=== PATIENT | female | born 1965 | race Caucasian/White ===

== ENCOUNTER 2018-07-03 10:32 | Inpatient (IN) | payer MEDICAID ==
[2018-07-03] MEDS: CEFAZOLIN 1 GM/50 ML (PMX) 50 ML IVPB (07:00)
[~2018-07-03 10:32] MED LIST: CEFAZOLIN 2 GM/50 ML (PMX) 50 ML IVPB; ROCURONIUM 50 MG INJ; SEVOFLURANE 15 MIN
[2018-07-03 12:05] LABS: ADD MAN DIFF? NO
[2018-07-03 12:09] LABS: BASOPHILS % 0.5 % (0.0-2.0); EOSINOPHILS # 0.2 10^3/ul (0.0-0.5); EOSINOPHILS % 2.3 % (0.0-7.0); HEMATOCRIT 37.5 % (37.0-47.0); HEMOGLOBIN 12.4 g/dl (12.0-16.0); LYMPHOCYTES % 30.4 % (15.0-51.0); MEAN CORPUSCULAR HEMOGLOBIN 28.7 pg (29.0-33.0); MEAN CORPUSCULAR HGB CONC 33.1 g/dl (32.0-37.0); MEAN CORPUSCULAR VOLUME 86.8 fl (82.0-101.0); MEAN PLATELET VOLUME 9.6 fl (7.4-10.4); MONOCYTE # 0.5 10^3/ul (0.3-0.9); MONOCYTES % 7.1 % (0.0-11.0); NEUTROPHIL # 3.9 10^3/ul (1.6-7.5); NEUTROPHILS % 59.5 % (39.0-77.0); PLATELET COUNT 323 10^3/UL (140-415); RED BLOOD COUNT 4.32 10^6/ul (4.20-5.40); RED CELL DISTRIBUTION WIDTH 12.7 % (11.5-14.5)
[2018-07-03 12:09] LABS: WHITE BLOOD COUNT 6.5 10^3/ul (4.8-10.8)
[2018-07-03 12:25] LABS: ALANINE AMINOTRANSFERASE 38 IU/L (13-69); ALBUMIN 4.1 g/dl (3.3-4.9); ALBUMIN/GLOBULIN RATIO 1.07; ALKALINE PHOSPHATASE 90 IU/L (42-121); ANION GAP 9 (5-13); ASPARTATE AMINO TRANSFERASE 33 IU/L (15-46); BILIRUBIN,INDIRECT 0.5 mg/dl (0-1.1); BILIRUBIN,TOTAL 0.5 mg/dl (0.2-1.3); BLOOD UREA NITROGEN 11 mg/dl (7-20); CALCIUM 9.6 mg/dl (8.4-10.2); CARBON DIOXIDE 25 mmol/L (21-31); CHLORIDE 107 mmol/L (97-110); CREATININE 0.44 mg/dl (0.44-1.00); Estimated GFR > 60 mL/min (>60); GLUCOSE 94 mg/dl (70-220); POTASSIUM 3.7 mmol/L (3.5-5.1); SODIUM 141 mmol/L (135-144); TOTAL PROTEIN 7.9 g/dl (6.1-8.1)
[2018-07-03 12:26] LABS: INR 0.92; PROTIME 12.5 Sec (11.9-14.9)
[2018-07-03 12:28] LABS: PARTIAL THROMBOPLASTIN TIME 28.9 Sec (23.0-35.0)
[2018-07-03] MEDS ORDERED: MIDAZOLAM 1 MG/ML 2 ML INJ (12:37)
[2018-07-03] MEDS ORDERED: PROPOFOL 20 ML (12:37)
[2018-07-03] MEDS ORDERED: CEFAZOLIN 1 GM INJ (12:37)
[2018-07-03] MEDS ORDERED: FENTAnyl 50 MCG/ML VIAL (12:37)
[2018-07-03] MEDS ORDERED: ROCURONIUM 50 MG INJ (12:37)
[2018-07-03] MEDS ORDERED: OXYCODONE/ACETAMINOPHEN (5/325) TAB PO ×2 (13:00)
[2018-07-03] MEDS ORDERED: LABETALOL HCL 20MG INJ IV (13:00)
[2018-07-03] MEDS ORDERED: FENTAnyl 50 MCG/ML VIAL IV ×3 (13:00)
[2018-07-03] MEDS ORDERED: METOCLOPRAMIDE 10 MG INJ IV (13:00)
[2018-07-03] MEDS ORDERED: hydrALAzine 20 MG INJ IV (13:00)
[2018-07-03] MEDS ORDERED: HYDROmorphONE 1 MG/5 ML IV SYRINGE IV (13:00)
[2018-07-03] MEDS ORDERED: DIPHENHYDRAMINE 50 MG INJ IV (13:00)
[2018-07-03] MEDS ORDERED: EPHEDrine SULFATE 50 MG/5 ML SYG IV (13:00)
[2018-07-03] MEDS ORDERED: GLYCOPYRROLATE 0.4 MG INJ (13:52)
[2018-07-03] MEDS ORDERED: METOCLOPRAMIDE 10 MG INJ (13:52)
[2018-07-03] MEDS ORDERED: NEOSTIGMINE 3 MG/3 ML SYRINGE (13:52)
[2018-07-03] MEDS ORDERED: ONDANSETRON 4 MG INJ (13:52)
[2018-07-03] MEDS ORDERED: DEXAMETHASONE 4 MG/ML 5 ML INJ (13:52)
[2018-07-03] MEDS ORDERED: morphine 2 MG INJ IV (14:00)
[2018-07-03] MEDS ORDERED: ONDANSETRON 4 MG INJ IV (14:00)
[2018-07-03] MEDS: HYDROmorphONE 1 MG/5 ML IV SYRINGE IV ×2 (14:27→15:12)
[2018-07-03] MEDS: ONDANSETRON 4 MG INJ IV (14:27)
[2018-07-03] MEDS: MEPERIDINE 25 MG INJ IV (14:38)
[2018-07-03] MEDS: D5W-0.45 NACL + KCL 20 MEQ 1,000 ML IV ×2 (16:45→23:36)
[2018-07-03] MEDS: SOD CHLORIDE 0.9% 1,000 ML IV (19:13)
[2018-07-03] MEDS: HYDROCODONE/APAP (5/325) TAB PO (19:42)
[2018-07-03] MEDS: ACETAMINOPHEN 1000MG/100ML IV 100 ML IVPB (23:44)
[2018-07-04] MEDS: D5W-0.45 NACL + KCL 20 MEQ 1,000 ML IV (05:46)
[2018-07-04] MEDS: ACETAMINOPHEN 1000MG/100ML IV 100 ML IVPB (07:49)
[2018-07-04] MEDS: ACETAMINOPHEN 325 MG TAB PO (14:55)
== END 2018-07-04 16:14 | disposition home or self-care (01) | DRG 582 ==
LOC: SDS 10:32 → REC 13:47 → MS1 15:39
PROC: 0HTU0ZZ Resection of Left Breast, Open Approach (ICD-10-PCS; principal; 2018-07-03 12:29)
PROC: 07T60ZZ Resection of Left Axillary Lymphatic, Open Approach (ICD-10-PCS; 2018-07-03 12:29)
DX: C50.912 Malignant neoplasm of unspecified site of left female breast (principal); C77.3 Secondary and unspecified malignant neoplasm of axilla and upper limb lymph nodes
CPT/HCPCS: 71045; 80053; 84703; 85025; 85610; 85730; 88307; 93005

== ENCOUNTER 2018-08-13 07:24 | Day surgery (SDC) | payer MEDICAID ==
[2018-08-13] MEDS: LACTATED RINGER'S 1,000 ML IV (08:30)
[2018-08-13] MEDS: FENTAnyl 50 MCG/ML VIAL (10:40)
[2018-08-13] MEDS: HEPARIN 1000 UNITS/ML 10 ML INJ (10:40)
[2018-08-13] MEDS: LIDOCAINE 1%/EPI (1:100,000) (MDV) 20 ML (10:40)
[2018-08-13] MEDS: MIDAZOLAM 1 MG/ML 2 ML INJ (10:40)
[2018-08-13] MEDS: POLYMYXIN/BACITRACIN 1L IRRIG IRR (10:55)
[2018-08-13] MEDS ORDERED: HYDROCODONE/APAP (5/325) TAB PO (12:00)
== END 2018-08-13 14:07 | disposition home or self-care (01) ==
LOC: SDS 07:24
DX: C50.912 Malignant neoplasm of unspecified site of left female breast (principal); E78.5 Hyperlipidemia, unspecified
CPT/HCPCS: 36561; 76942; 93306

== ENCOUNTER 2019-01-02 19:37 | Emergency (ER) | payer MEDICAID ==
[2019-01-02] MEDS: morphine 4 MG/ML VIAL IV (21:30)
[2019-01-02 21:41] LABS: HEMATOCRIT 29.9 % (37.0-47.0); HEMOGLOBIN 9.9 g/dl (12.0-16.0); MEAN CORPUSCULAR HEMOGLOBIN 30.3 pg (29.0-33.0); MEAN CORPUSCULAR HGB CONC 33.1 g/dl (32.0-37.0); MEAN CORPUSCULAR VOLUME 91.4 fl (82.0-101.0); MEAN PLATELET VOLUME 9.2 fl (7.4-10.4); PLATELET COUNT 212 10^3/UL (140-415); RED BLOOD COUNT 3.27 10^6/ul (4.20-5.40); RED CELL DISTRIBUTION WIDTH 15.6 % (11.5-14.5)
[2019-01-02 21:41] LABS: WHITE BLOOD COUNT 2.5 10^3/ul (4.8-10.8)
[2019-01-02 21:51] LABS: ADD MAN DIFF? YES; POSITIVE DIFF @See below
[2019-01-02 22:03] LABS: ALANINE AMINOTRANSFERASE 32 IU/L (13-69); ALBUMIN/GLOBULIN RATIO 1.25; ALKALINE PHOSPHATASE 66 IU/L (42-121); ANION GAP 10 (5-13); ASPARTATE AMINO TRANSFERASE 31 IU/L (15-46); BILIRUBIN,INDIRECT 1.1 mg/dl (0-1.1); BILIRUBIN,TOTAL 1.1 mg/dl (0.2-1.3); BLOOD UREA NITROGEN 6 mg/dl (7-20); CALCIUM 9.5 mg/dl (8.4-10.2); CARBON DIOXIDE 23 mmol/L (21-31); CHLORIDE 105 mmol/L (97-110); CREATININE 0.39 mg/dl (0.44-1.00); Estimated GFR > 60 mL/min (>60); GLUCOSE 103 mg/dl (70-220); POTASSIUM 3.9 mmol/L (3.5-5.1); SODIUM 138 mmol/L (135-144); TOTAL PROTEIN 7.2 g/dl (6.1-8.1)
[2019-01-02 22:14] LABS: TROPONIN-I 0.024 ng/ml (0.000-0.120)
[2019-01-02] MEDS: HYDROCODONE/APAP (5/325) TAB PO (22:36)
[2019-01-02 23:00] LABS: GIANT THROMBO% (M) 2 % (0-0); HYPOCHROMASIA 1+ (0-0); LYMPHOCYTES #M 0.5 10^3/ul (0.8-2.9); LYMPHOCYTES % (M) 22 % (15-51); MONOCYTES % (M) 1 % (0-11); PLATELET ESTIMATE NORMAL; SEGMENTED NEUTROPHILS (M) % 77 % (39-77); SMUDGE%M 2 % (0-0)
== END 2019-01-02 22:37 | disposition home or self-care (01) ==
LOC: E/R 19:37
DX: G62.0 Drug-induced polyneuropathy (principal); D70.1 Agranulocytosis secondary to cancer chemotherapy; T45.1X5A Adverse effect of antineoplastic and immunosuppressive drugs, initial encounter; C50.912 Malignant neoplasm of unspecified site of left female breast
CPT/HCPCS: 36415; 71045; 80053; 84484; 85025; 93005; 96374; 99285-25

== ENCOUNTER 2019-01-05 15:41 | Inpatient (IN) | payer MEDICAID ==
[2019-01-05 16:44] LABS: WHITE BLOOD COUNT 0.6 10^3/ul (4.8-10.8)
[2019-01-05 16:44] LABS: ABNORMAL IP MESSAGE 1; HEMATOCRIT 30.9 % (37.0-47.0); HEMOGLOBIN 10.4 g/dl (12.0-16.0); MEAN CORPUSCULAR HEMOGLOBIN 30.4 pg (29.0-33.0); MEAN CORPUSCULAR HGB CONC 33.7 g/dl (32.0-37.0); MEAN CORPUSCULAR VOLUME 90.4 fl (82.0-101.0); MEAN PLATELET VOLUME 9.4 fl (7.4-10.4); PLATELET COUNT 242 10^3/UL (140-415); RED BLOOD COUNT 3.42 10^6/ul (4.20-5.40); RED CELL DISTRIBUTION WIDTH 14.9 % (11.5-14.5)
[2019-01-05 16:47] LABS: POSITIVE DIFF @See below
[2019-01-05 16:48] LABS: ADD MAN DIFF? YES
[2019-01-05 17:00] LABS: ANION GAP 12 (5-13); BLOOD UREA NITROGEN 8 mg/dl (7-20); CALCIUM 10.3 mg/dl (8.4-10.2); CARBON DIOXIDE 28 mmol/L (21-31); CHLORIDE 98 mmol/L (97-110); CREATININE 0.44 mg/dl (0.44-1.00); Estimated GFR > 60 mL/min (>60); GLUCOSE 119 mg/dl (70-220); POTASSIUM 3.4 mmol/L (3.5-5.1); SODIUM 138 mmol/L (135-144)
[2019-01-05] MEDS: ONDANSETRON 4 MG INJ IV ×2 (17:10→23:01)
[2019-01-05] MEDS: morphine 4 MG/ML VIAL IV (17:11)
[2019-01-05 17:26] LABS: BAND NEUTROPHILS % (M) 7 % (0-4); BASOPHILS % (M) 2 % (0-2); GIANT THROMBO% (M) 3 % (0-0); LYMPHOCYTES #M 0.4 10^3/ul (0.8-2.9); LYMPHOCYTES % (M) 74 % (15-51); METAMYELOCYTES %M 1 % (0-0); MONOCYTES % (M) 2 % (0-11); PLATELET ESTIMATE NORMAL; POLYCHROMASIA 1+ (0-0); SEG NEUT #M 0.1 10^3/ul (1.6-7.5); SEGMENTED NEUTROPHILS (M) % 14 % (39-77); SMUDGE%M 7 % (0-0)
[2019-01-05] MEDS ORDERED: ONDANSETRON 4 MG INJ IV (18:00)
[2019-01-05] MEDS ORDERED: ACETAMINOPHEN 325 MG TAB PO (18:00)
[2019-01-05] MEDS ORDERED: HYDROCODONE/APAP (5/325) TAB PO (21:00)
[2019-01-05] MEDS: GABAPENTIN 100 MG CAP PO (23:01)
[2019-01-05] MEDS: morphine 2 MG INJ IV (23:43)
[2019-01-06] MEDS: morphine 2 MG INJ IV ×2 (07:48→22:37)
[2019-01-06] MEDS: GABAPENTIN 100 MG CAP PO ×3 (09:12→21:51)
[2019-01-06] MEDS: DEXAMETHASONE 4 MG/ML 1 ML INJ IV ×2 (14:50→21:52)
[2019-01-06] MEDS: FILGRASTIM-AAFI 480 MCG/0.8 ML SYRINGE SC (18:12)
[2019-01-06] MEDS ORDERED: DEXAMETHASONE 4 MG/ML 1 ML INJ IV (22:00)
[2019-01-07] MEDS: DEXAMETHASONE 4 MG/ML 1 ML INJ IV ×3 (05:18→21:03)
[2019-01-07] MEDS: ACETAMINOPHEN 325 MG TAB PO ×2 (07:44→17:40)
[2019-01-07] MEDS: GABAPENTIN 100 MG CAP PO ×3 (08:58→21:03)
[2019-01-07 11:54] LABS: ABNORMAL IP MESSAGE 1; HEMATOCRIT 30.5 % (37.0-47.0); MEAN CORPUSCULAR HEMOGLOBIN 29.9 pg (29.0-33.0); MEAN CORPUSCULAR HGB CONC 32.8 g/dl (32.0-37.0); MEAN CORPUSCULAR VOLUME 91.3 fl (82.0-101.0); MEAN PLATELET VOLUME 9.8 fl (7.4-10.4); PLATELET COUNT 265 10^3/UL (140-415); RED BLOOD COUNT 3.34 10^6/ul (4.20-5.40); RED CELL DISTRIBUTION WIDTH 15.1 % (11.5-14.5)
[2019-01-07 11:54] LABS: WHITE BLOOD COUNT 1.5 10^3/ul (4.8-10.8)
[2019-01-07 12:10] LABS: ANION GAP 11 (5-13); BLOOD UREA NITROGEN 6 mg/dl (7-20); CALCIUM 10.2 mg/dl (8.4-10.2); CARBON DIOXIDE 28 mmol/L (21-31); CHLORIDE 102 mmol/L (97-110); CREATININE 0.41 mg/dl (0.44-1.00); Estimated GFR > 60 mL/min (>60); GLUCOSE 133 mg/dl (70-220); POTASSIUM 3.7 mmol/L (3.5-5.1); SODIUM 141 mmol/L (135-144)
[2019-01-07 12:18] LABS: ADD MAN DIFF? YES; POSITIVE DIFF @See below
[2019-01-07 13:48] LABS: ANISOCYTOSIS 1+ (0-0); BAND NEUTROPHILS #M 0.3 10^3/ul (0.0-0.6); BAND NEUTROPHILS % (M) 26 % (0-4); ERYTHROBLAST% (NRBC) (M) 1 % (0-0); GIANT THROMBO% (M) 4 % (0-0); LYMPHOCYTES #M 0.4 10^3/ul (0.8-2.9); LYMPHOCYTES % (M) 29 % (15-51); METAMYELOCYTES %M 1 % (0-0); MONOCYTE #M 0.1 10^3/ul (0.3-0.9); MONOCYTES % (M) 11 % (0-11); MYELOCYTES % (M) 1 % (0-0); PLATELET ESTIMATE NORMAL; POIKILOCYTOSIS 1+ (0-0); REACTIVE LYMPHOCYTES% (M) 4 % (0-0); SEG NEUT #M 0.4 10^3/ul (1.6-7.5); SEGMENTED NEUTROPHILS (M) % 28 % (39-77); SMUDGE%M 4 % (0-0)
[2019-01-07] MEDS: FILGRASTIM-AAFI 480 MCG/0.8 ML SYRINGE SC (16:53)
[2019-01-07] MEDS: morphine 2 MG INJ IV (18:58)
[2019-01-08] MEDS: morphine 2 MG INJ IV ×4 (00:18→21:59)
[2019-01-08 05:13] LABS: ABNORMAL IP MESSAGE 1; HEMATOCRIT 29.7 % (37.0-47.0); HEMOGLOBIN 9.5 g/dl (12.0-16.0); MEAN CORPUSCULAR HEMOGLOBIN 29.9 pg (29.0-33.0); MEAN CORPUSCULAR VOLUME 93.4 fl (82.0-101.0); MEAN PLATELET VOLUME 9.3 fl (7.4-10.4); PLATELET COUNT 251 10^3/UL (140-415); RED BLOOD COUNT 3.18 10^6/ul (4.20-5.40); RED CELL DISTRIBUTION WIDTH 15.2 % (11.5-14.5)
[2019-01-08 05:13] LABS: WHITE BLOOD COUNT 3.1 10^3/ul (4.8-10.8)
[2019-01-08 05:16] LABS: ADD MAN DIFF? YES; POSITIVE DIFF @See below
[2019-01-08 05:37] LABS: ANION GAP 9 (5-13); BLOOD UREA NITROGEN 10 mg/dl (7-20); CALCIUM 10.2 mg/dl (8.4-10.2); CARBON DIOXIDE 28 mmol/L (21-31); CHLORIDE 102 mmol/L (97-110); CREATININE 0.47 mg/dl (0.44-1.00); Estimated GFR > 60 mL/min (>60); GLUCOSE 121 mg/dl (70-220); SODIUM 139 mmol/L (135-144)
[2019-01-08] MEDS: DEXAMETHASONE 4 MG/ML 1 ML INJ IV ×3 (05:41→20:57)
[2019-01-08 07:12] LABS: ANISOCYTOSIS 1+ (0-0); BAND NEUTROPHILS #M 0.6 10^3/ul (0.0-0.6); BAND NEUTROPHILS % (M) 22 % (0-4); ERYTHROBLAST% (NRBC) (M) 3 % (0-0); GIANT THROMBO% (M) 17 % (0-0); LYMPHOCYTES #M 0.8 10^3/ul (0.8-2.9); LYMPHOCYTES % (M) 27 % (15-51); MONOCYTE #M 0.5 10^3/ul (0.3-0.9); MONOCYTES % (M) 17 % (0-11); PLATELET ESTIMATE NORMAL; POIKILOCYTOSIS 1+ (0-0); SEG NEUT #M 1.1 10^3/ul (1.6-7.5); SEGMENTED NEUTROPHILS (M) % 34 % (39-77); SMUDGE%M 34 % (0-0)
[2019-01-08] MEDS: GABAPENTIN 100 MG CAP PO ×3 (08:44→20:56)
[2019-01-08] MEDS: ENOXAPARIN 30 MG/0.3 ML SYG SC (09:00)
[2019-01-08 11:27] LABS: ADD UMIC NO; UR ASCORBIC ACID NEGATIVE (NEGATIVE); UR BACTERIA FEW /HPF (NONE SEEN); UR BILIRUBIN (Dip) NEGATIVE (NEGATIVE); UR BLOOD (Dip) NEGATIVE (NEGATIVE); UR CLARITY SLIGHTLY CLOUDY (CLEAR); UR COLOR YELLOW (YELLOW); UR GLUCOSE (Dip) NEGATIVE (NEGATIVE); UR KETONES (Dip) NEGATIVE (NEGATIVE); UR LEUKOCYTE ESTERASE (Dip) NEGATIVE Leu/ul (NEGATIVE); UR NITRITE (Dip) NEGATIVE (NEGATIVE); UR RBC 1 /HPF (0-5); UR SPECIFIC GRAVITY (Dip) 1.008 (1.003-1.030); UR SQUAMOUS EPITHELIAL CELL FEW /HPF (FEW); UR TOTAL PROTEIN (Dip) NEGATIVE (NEGATIVE); UR UROBILINOGEN (Dip) NEGATIVE (NEGATIVE); UR WBC 1 /HPF (0-5)
[2019-01-08] MEDS: LIDOCAINE 1% (MPF) 5 ML VIAL (14:09)
[2019-01-08] MEDS: ONDANSETRON INJ 8 MG in SOD CHLORIDE 0.9% 50 ML IV (14:12)
[2019-01-08] MEDS: SOD CHLORIDE 0.9% IT (15:00)
[2019-01-08] MEDS: METHOTREXATE IT (15:00)
[2019-01-08] MEDS: FILGRASTIM 480 MCG INJ SC (17:10)
[2019-01-09] MEDS: ACETAMINOPHEN 325 MG TAB PO ×3 (02:01→21:07)
[2019-01-09] MEDS: morphine 2 MG INJ IV ×2 (02:43→18:31)
[2019-01-09] MEDS: DEXAMETHASONE 4 MG/ML 1 ML INJ IV ×3 (06:40→21:05)
[2019-01-09] MEDS: ONDANSETRON 4 MG INJ IV ×3 (08:45→18:33)
[2019-01-09] MEDS: GABAPENTIN 100 MG CAP PO ×3 (08:50→21:05)
[2019-01-09] MEDS: ENOXAPARIN 30 MG/0.3 ML SYG SC (13:06)
[2019-01-09] MEDS: FILGRASTIM-AAFI 480 MCG/0.8 ML SYRINGE SC (18:32)
[2019-01-10] MEDS: ACETAMINOPHEN 325 MG TAB PO ×2 (00:47→17:55)
[2019-01-10] MEDS: DEXAMETHASONE 4 MG/ML 1 ML INJ IV ×3 (05:30→21:57)
[2019-01-10] MEDS: morphine 2 MG INJ IV ×3 (08:07→20:32)
[2019-01-10] MEDS: GABAPENTIN 100 MG CAP PO ×3 (09:00→20:32)
[2019-01-10] MEDS: ENOXAPARIN 30 MG/0.3 ML SYG SC (09:01)
[2019-01-10] MEDS: ONDANSETRON 4 MG INJ IV ×2 (13:23→17:48)
[2019-01-10] MEDS: FILGRASTIM-AAFI 480 MCG/0.8 ML SYRINGE SC (17:50)
[2019-01-11] MEDS: DEXAMETHASONE 4 MG/ML 1 ML INJ IV ×3 (05:36→21:33)
[2019-01-11] MEDS: ENOXAPARIN 30 MG/0.3 ML SYG SC (08:39)
[2019-01-11] MEDS: GABAPENTIN 100 MG CAP PO ×3 (08:39→21:34)
[2019-01-11] MEDS: ONDANSETRON 4 MG INJ IV ×3 (08:39→18:16)
[2019-01-11] MEDS: FILGRASTIM-AAFI 480 MCG/0.8 ML SYRINGE SC (18:17)
[2019-01-11] MEDS: morphine 2 MG INJ IV (21:32)
[2019-01-12] MEDS: morphine 2 MG INJ IV ×2 (02:19→17:49)
[2019-01-12] MEDS: ONDANSETRON 4 MG INJ IV ×4 (02:19→23:00)
[2019-01-12 04:50] LABS: WHITE BLOOD COUNT 68.4 10^3/ul (4.8-10.8)
[2019-01-12 04:50] LABS: ABNORMAL IP MESSAGE 1; HEMATOCRIT 31.4 % (37.0-47.0); HEMOGLOBIN 9.8 g/dl (12.0-16.0); MEAN CORPUSCULAR HEMOGLOBIN 29.8 pg (29.0-33.0); MEAN CORPUSCULAR HGB CONC 31.2 g/dl (32.0-37.0); MEAN CORPUSCULAR VOLUME 95.4 fl (82.0-101.0); NUCLEATED RED BLOOD CELLS% 0.1 /100WBC (0.0-0.0); PLATELET COUNT 219 10^3/UL (140-415); RED BLOOD COUNT 3.29 10^6/ul (4.20-5.40); RED CELL DISTRIBUTION WIDTH 15.8 % (11.5-14.5)
[2019-01-12 04:56] LABS: ADD MAN DIFF? YES; POSITIVE DIFF @See below
[2019-01-12 05:09] LABS: ANION GAP 8 (5-13); BLOOD UREA NITROGEN 14 mg/dl (7-20); CALCIUM 9.7 mg/dl (8.4-10.2); CARBON DIOXIDE 30 mmol/L (21-31); CHLORIDE 100 mmol/L (97-110); Estimated GFR > 60 mL/min (>60); GLUCOSE 114 mg/dl (70-220); POTASSIUM 4.3 mmol/L (3.5-5.1); SODIUM 138 mmol/L (135-144)
[2019-01-12] MEDS: DEXAMETHASONE 4 MG/ML 1 ML INJ IV ×2 (05:46→21:20)
[2019-01-12 07:58] LABS: WHITE BLOOD COUNT 63.8 10^3/ul (4.8-10.8)
[2019-01-12 07:58] LABS: ABNORMAL IP MESSAGE 1; MEAN CORPUSCULAR HEMOGLOBIN 30.7 pg (29.0-33.0); MEAN CORPUSCULAR HGB CONC 32.3 g/dl (32.0-37.0); MEAN CORPUSCULAR VOLUME 95.1 fl (82.0-101.0); MEAN PLATELET VOLUME 8.9 fl (7.4-10.4); NUCLEATED RED BLOOD CELLS% 0.1 /100WBC (0.0-0.0); PLATELET COUNT 233 10^3/UL (140-415); RED BLOOD COUNT 3.26 10^6/ul (4.20-5.40); RED CELL DISTRIBUTION WIDTH 15.6 % (11.5-14.5)
[2019-01-12 08:00] LABS: ADD MAN DIFF? YES; POSITIVE DIFF @See below
[2019-01-12] MEDS: GABAPENTIN 100 MG CAP PO ×3 (08:03→21:20)
[2019-01-12] MEDS: ACETAMINOPHEN 325 MG TAB PO (08:06)
[2019-01-12 09:37] LABS: ANISOCYTOSIS 1+ (0-0); BAND NEUTROPHILS #M 7.6 10^3/ul (0.0-0.6); BAND NEUTROPHILS % (M) 12 % (0-4); METAMYELOCYTES #M 0.6 10^3/ul (0.0-0.0); METAMYELOCYTES %M 1 % (0-0); MICROCYTOSIS 1+ (0-0); MONOCYTE #M 1.2 10^3/ul (0.3-0.9); MONOCYTES % (M) 2 % (0-11); PLATELET ESTIMATE NORMAL; POIKILOCYTOSIS 1+ (0-0); POLYCHROMASIA 1+ (0-0); REACTIVE LYMPHOCYTES #M 0.6 10^3/ul (0.0-0.0); REACTIVE LYMPHOCYTES% (M) 1 % (0-0); SEG NEUT #M 58.4 10^3/ul (1.6-7.5); SEGMENTED NEUTROPHILS (M) % 84 % (39-77); TARGET CELLS 1+ (0-0); TEAR DROP CELLS 1+ (0-0); TOXIC GRANULATION 2+ (0-0)
[2019-01-12] MEDS: LIDOCAINE 1% (MPF) 5 ML VIAL (10:13)
[2019-01-12] MEDS: METHOTREXATE IT (10:30)
[2019-01-12] MEDS: SOD CHLORIDE 0.9% IT (10:30)
[2019-01-12 11:49] LABS: ANISOCYTOSIS 1+ (0-0); BAND NEUTROPHILS #M 13.6 10^3/ul (0.0-0.6); BAND NEUTROPHILS % (M) 20 % (0-4); LYMPHOCYTES #M 0.6 10^3/ul (0.8-2.9); LYMPHOCYTES % (M) 1 % (15-51); MICROCYTOSIS 1+ (0-0); MONOCYTE #M 0.6 10^3/ul (0.3-0.9); MONOCYTES % (M) 1 % (0-11); MYELOCYTES #M 0.6 10^3/ul (0.0-0.0); MYELOCYTES % (M) 1 % (0-0); PLATELET ESTIMATE NORMAL; POIKILOCYTOSIS 1+ (0-0); POLYCHROMASIA 1+ (0-0); PROMYELOCYTES #M 1.3 10^3/ul (0-0); PROMYELOCYTES % (M) 2 % (0-0); SEG NEUT #M 61.3 10^3/ul (1.6-7.5); SEGMENTED NEUTROPHILS (M) % 76 % (39-77); SMUDGE%M 2 % (0-0); TOXIC GRANULATION 2+ (0-0)
[2019-01-13] MEDS: ONDANSETRON 4 MG INJ IV ×4 (08:22→21:33)
[2019-01-13] MEDS: DEXAMETHASONE 4 MG/ML 1 ML INJ IV ×2 (08:22→21:33)
[2019-01-13] MEDS: GABAPENTIN 100 MG CAP PO ×3 (08:22→21:34)
[2019-01-13] MEDS: morphine 2 MG INJ IV (10:17)
[2019-01-14] MEDS: morphine 2 MG INJ IV ×2 (06:13→22:31)
[2019-01-14] MEDS: ONDANSETRON 4 MG INJ IV ×3 (08:43→17:58)
[2019-01-14] MEDS: DEXAMETHASONE 4 MG/ML 1 ML INJ IV ×2 (08:43→20:46)
[2019-01-14] MEDS: GABAPENTIN 100 MG CAP PO ×3 (08:44→20:46)
[2019-01-14] MEDS: ACETAMINOPHEN 325 MG TAB PO (11:57)
[2019-01-15] MEDS: morphine 2 MG INJ IV ×3 (05:38→23:05)
[2019-01-15] MEDS: DEXAMETHASONE 4 MG/ML 1 ML INJ IV ×2 (08:57→20:35)
[2019-01-15] MEDS: GABAPENTIN 100 MG CAP PO ×3 (08:57→20:35)
[2019-01-15] MEDS: METHOTREXATE IT (11:30)
[2019-01-15] MEDS: SOD CHLORIDE 0.9% IT (11:30)
[2019-01-15] MEDS: POLYETHYLENE GLYCOL 17 GM PACKET PO (20:35)
[2019-01-16 05:08] LABS: ADD MAN DIFF? NO
[2019-01-16 05:23] LABS: WHITE BLOOD COUNT 3.4 10^3/ul (4.8-10.8)
[2019-01-16 05:23] LABS: ABNORMAL IP MESSAGE 1; HEMATOCRIT 30.9 % (37.0-47.0); HEMOGLOBIN 9.9 g/dl (12.0-16.0); LYMPHOCYTES # 0.5 10^3/ul (0.8-2.9); LYMPHOCYTES % 14.3 % (15.0-51.0); MEAN CORPUSCULAR HEMOGLOBIN 30.1 pg (29.0-33.0); MEAN CORPUSCULAR VOLUME 93.9 fl (82.0-101.0); MEAN PLATELET VOLUME 9.7 fl (7.4-10.4); MONOCYTE # 0.3 10^3/ul (0.3-0.9); MONOCYTES % 8.4 % (0.0-11.0); NEUTROPHIL # 2.6 10^3/ul (1.6-7.5); PLATELET COUNT 191 10^3/UL (140-415); RED BLOOD COUNT 3.29 10^6/ul (4.20-5.40); RED CELL DISTRIBUTION WIDTH 15.5 % (11.5-14.5)
[2019-01-16 05:49] LABS: ANION GAP 6 (5-13); BLOOD UREA NITROGEN 13 mg/dl (7-20); CALCIUM 9.1 mg/dl (8.4-10.2); CARBON DIOXIDE 31 mmol/L (21-31); CHLORIDE 102 mmol/L (97-110); CREATININE 0.43 mg/dl (0.44-1.00); Estimated GFR > 60 mL/min (>60); GLUCOSE 116 mg/dl (70-220); POTASSIUM 4.3 mmol/L (3.5-5.1); SODIUM 139 mmol/L (135-144)
[2019-01-16 05:50] LABS: POSITIVE DIFF @See below
[2019-01-16] MEDS: GABAPENTIN 100 MG CAP PO ×3 (08:48→20:54)
[2019-01-16] MEDS: ONDANSETRON 4 MG INJ IV ×3 (08:48→17:58)
[2019-01-16] MEDS: DEXAMETHASONE 4 MG/ML 1 ML INJ IV ×2 (08:48→20:54)
[2019-01-16] MEDS: morphine 2 MG INJ IV (22:39)
[2019-01-17] MEDS: DEXAMETHASONE 4 MG/ML 1 ML INJ IV ×2 (09:37→21:03)
[2019-01-17] MEDS: GABAPENTIN 100 MG CAP PO ×3 (09:37→21:03)
[2019-01-17] MEDS: ONDANSETRON 4 MG INJ IV ×3 (09:41→17:51)
[2019-01-17] MEDS: morphine 2 MG INJ IV (23:09)
[2019-01-18] MEDS: DEXAMETHASONE 4 MG/ML 1 ML INJ IV ×2 (07:59→20:22)
[2019-01-18] MEDS: GABAPENTIN 100 MG CAP PO ×3 (08:00→20:22)
[2019-01-18] MEDS: ONDANSETRON 4 MG INJ IV ×3 (08:00→17:29)
[2019-01-18] MEDS: morphine 2 MG INJ IV (23:01)
[2019-01-19 05:03] LABS: ADD MAN DIFF? NO
[2019-01-19 05:08] LABS: ABNORMAL IP MESSAGE 1; HEMATOCRIT 28.3 % (37.0-47.0); HEMOGLOBIN 9.2 g/dl (12.0-16.0); LYMPHOCYTES # 0.5 10^3/ul (0.8-2.9); LYMPHOCYTES % 11.3 % (15.0-51.0); MEAN CORPUSCULAR HEMOGLOBIN 30.6 pg (29.0-33.0); MEAN CORPUSCULAR HGB CONC 32.5 g/dl (32.0-37.0); MEAN PLATELET VOLUME 9.7 fl (7.4-10.4); MONOCYTE # 0.3 10^3/ul (0.3-0.9); MONOCYTES % 6.7 % (0.0-11.0); NEUTROPHIL # 3.5 10^3/ul (1.6-7.5); NEUTROPHILS % 81.5 % (39.0-77.0); PLATELET COUNT 208 10^3/UL (140-415); RED BLOOD COUNT 3.01 10^6/ul (4.20-5.40); RED CELL DISTRIBUTION WIDTH 16.3 % (11.5-14.5)
[2019-01-19 05:08] LABS: WHITE BLOOD COUNT 4.3 10^3/ul (4.8-10.8)
[2019-01-19 05:11] LABS: POSITIVE DIFF @See below
[2019-01-19 05:30] LABS: ANION GAP 5 (5-13); BLOOD UREA NITROGEN 16 mg/dl (7-20); CARBON DIOXIDE 29 mmol/L (21-31); CHLORIDE 103 mmol/L (97-110); CREATININE 0.47 mg/dl (0.44-1.00); Estimated GFR > 60 mL/min (>60); GLUCOSE 114 mg/dl (70-220); POTASSIUM 3.8 mmol/L (3.5-5.1); SODIUM 137 mmol/L (135-144)
[2019-01-19] MEDS: DEXAMETHASONE 4 MG/ML 1 ML INJ IV ×2 (09:00→21:16)
[2019-01-19] MEDS: GABAPENTIN 100 MG CAP PO ×3 (09:00→21:16)
[2019-01-19] MEDS ORDERED: SOD CHLORIDE 0.9% IT (11:00)
[2019-01-19] MEDS ORDERED: METHOTREXATE IT (11:00)
[2019-01-19] MEDS: LIDOCAINE 1% (MPF) 5 ML VIAL (11:19)
[2019-01-20] MEDS: DEXAMETHASONE 4 MG/ML 1 ML INJ IV (08:41)
[2019-01-20] MEDS: GABAPENTIN 100 MG CAP PO ×2 (08:41→12:48)
[2019-01-20] MEDS: ONDANSETRON 4 MG INJ IV ×2 (08:41→13:10)
[2019-01-20] MEDS: ENOXAPARIN 30 MG/0.3 ML SYG SC ×2 (08:45→08:54)
== END 2019-01-20 13:40 | disposition home or self-care (01) | DRG 55 ==
LOC: MS1 01-13 17:12 → E/R 15:41 → MS1 17:55
PROC: 3E0R305 Introduction of Other Antineoplastic into Spinal Canal, Percutaneous Approach (ICD-10-PCS; 2019-01-08)
PROC: 3E0R305 Introduction of Other Antineoplastic into Spinal Canal, Percutaneous Approach (ICD-10-PCS; principal; 2019-01-12)
PROC: 3E0R305 Introduction of Other Antineoplastic into Spinal Canal, Percutaneous Approach (ICD-10-PCS; 2019-01-15)
PROC: 3E0R305 Introduction of Other Antineoplastic into Spinal Canal, Percutaneous Approach (ICD-10-PCS; 2019-01-20)
DX: C79.32 Secondary malignant neoplasm of cerebral meninges (principal); C79.51 Secondary malignant neoplasm of bone; C79.89 Secondary malignant neoplasm of other specified sites; C50.912 Malignant neoplasm of unspecified site of left female breast; C79.49 Secondary malignant neoplasm of other parts of nervous system; D70.9 Neutropenia, unspecified; E78.5 Hyperlipidemia, unspecified; Z17.0 Estrogen receptor positive status [ER+]
CPT/HCPCS: 70553; 72156; 73221; 80048; 81001; 81003; 85025; 96374; 96375; 96450; 99285-25

== ENCOUNTER 2019-03-04 08:15 | Emergency (ER) | payer MEDICAID ==
[2019-03-04] MEDS: SOD CHLORIDE 0.9% 1,000 ML IV (08:55)
[2019-03-04] MEDS: DIPHENHYDRAMINE 50 MG INJ IV (08:58)
[2019-03-04] MEDS: DEXAMETHASONE 10 MG/ML 1 ML INJ IV (08:58)
[2019-03-04] MEDS: ACETAMINOPHEN 500 MG TAB PO (08:58)
[2019-03-04] MEDS: METOCLOPRAMIDE 10 MG INJ IV (08:58)
[2019-03-04 09:00] LABS: ABNORMAL IP MESSAGE 1; HEMATOCRIT 35.5 % (37.0-47.0); HEMOGLOBIN 11.6 g/dl (12.0-16.0); MEAN CORPUSCULAR HEMOGLOBIN 30.6 pg (29.0-33.0); MEAN CORPUSCULAR HGB CONC 32.7 g/dl (32.0-37.0); MEAN CORPUSCULAR VOLUME 93.7 fl (82.0-101.0); MEAN PLATELET VOLUME 9.4 fl (7.4-10.4); PLATELET COUNT 90 10^3/UL (140-415); RED BLOOD COUNT 3.79 10^6/ul (4.20-5.40); RED CELL DISTRIBUTION WIDTH 18.1 % (11.5-14.5)
[2019-03-04 09:06] LABS: POSITIVE DIFF @See below
[2019-03-04 09:07] LABS: ADD MAN DIFF? YES
[2019-03-04 09:23] LABS: ANION GAP 5 (5-13); BLOOD UREA NITROGEN 11 mg/dl (7-20); CARBON DIOXIDE 24 mmol/L (21-31); CHLORIDE 108 mmol/L (97-110); CREATININE 0.54 mg/dl (0.44-1.00); Estimated GFR > 60 mL/min (>60); GLUCOSE 96 mg/dl (70-220); POTASSIUM 3.7 mmol/L (3.5-5.1); SODIUM 137 mmol/L (135-144)
[2019-03-04 09:51] LABS: ANISOCYTOSIS 2+ (0-0); BAND NEUTROPHILS #M 0.2 10^3/ul (0.0-0.6); BAND NEUTROPHILS % (M) 13 % (0-4); BASOPHILS % (M) 1 % (0-2); BURR CELLS 1+ (0-0); EOSINOPHILS % (M) 1 % (0-7); GIANT THROMBO% (M) 1 % (0-0); LYMPHOCYTES #M 0.8 10^3/ul (0.8-2.9); LYMPHOCYTES % (M) 43 % (15-51); MICROCYTOSIS 2+ (0-0); MONOCYTES % (M) 3 % (0-11); PLATELET ESTIMATE DECREASED; POIKILOCYTOSIS 1+ (0-0); POLYCHROMASIA 3+ (0-0); REACTIVE LYMPHOCYTES% (M) 4 % (0-0); SEG NEUT #M 0.7 10^3/ul (1.6-7.5); SEGMENTED NEUTROPHILS (M) % 35 % (39-77); SMUDGE%M 7 % (0-0)
[2019-03-04 10:56] LABS: INR 0.84; PROTIME 11.6 Sec (11.9-14.9); PT RATIO 0.9
[2019-03-04 10:57] LABS: PARTIAL THROMBOPLASTIN TIME 23.1 Sec (23.0-35.0)
== END 2019-03-04 13:00 | disposition home or self-care (01) ==
LOC: E/R 08:15
DX: C70.1 Malignant neoplasm of spinal meninges (principal); G93.6 Cerebral edema; G91.9 Hydrocephalus, unspecified; D72.819 Decreased white blood cell count, unspecified; D64.9 Anemia, unspecified; D69.6 Thrombocytopenia, unspecified; R40.2142 Coma scale, eyes open, spontaneous, at arrival to emergency department; R40.2252 Coma scale, best verbal response, oriented, at arrival to emergency department; R40.2362 Coma scale, best motor response, obeys commands, at arrival to emergency department; Z85.3 Personal history of malignant neoplasm of breast
CPT/HCPCS: 36415; 70450; 71045; 80048; 85025; 85610; 85730; 96374; 96375; 99285-25

== ENCOUNTER 2019-03-06 02:43 | Inpatient (IN) | payer MEDICAID ==
[2019-03-06 03:33] LABS: ADD MAN DIFF? NO
[2019-03-06 03:35] LABS: BASOPHILS % 0.2 % (0.0-2.0); EOSINOPHILS % 0.4 % (0.0-7.0); HEMATOCRIT 40.8 % (37.0-47.0); HEMOGLOBIN 13.2 g/dl (12.0-16.0); LYMPHOCYTES % 62.6 % (15.0-51.0); MEAN CORPUSCULAR HEMOGLOBIN 30.3 pg (29.0-33.0); MEAN CORPUSCULAR HGB CONC 32.4 g/dl (32.0-37.0); MEAN CORPUSCULAR VOLUME 93.6 fl (82.0-101.0); MEAN PLATELET VOLUME 9.7 fl (7.4-10.4); MONOCYTE # 0.2 10^3/ul (0.3-0.9); MONOCYTES % 4.4 % (0.0-11.0); NEUTROPHIL # 1.5 10^3/ul (1.6-7.5); NEUTROPHILS % 32.2 % (39.0-77.0); NUCLEATED RED BLOOD CELLS% 0.4 /100WBC (0.0-0.0); PLATELET COUNT 120 10^3/UL (140-415); RED BLOOD COUNT 4.36 10^6/ul (4.20-5.40); RED CELL DISTRIBUTION WIDTH 18.3 % (11.5-14.5)
[2019-03-06 03:35] LABS: WHITE BLOOD COUNT 4.7 10^3/ul (4.8-10.8)
[2019-03-06] MEDS: SOD CHLORIDE 0.9% 1,000 ML IV ×4 (03:40→20:43)
[2019-03-06] MEDS: METOCLOPRAMIDE 10 MG INJ IV (03:40)
[2019-03-06 03:42] LABS: ANION GAP 10 (5-13); BLOOD UREA NITROGEN 9 mg/dl (7-20); CALCIUM 9.1 mg/dl (8.4-10.2); CARBON DIOXIDE 22 mmol/L (21-31); CHLORIDE 107 mmol/L (97-110); CREATININE 0.55 mg/dl (0.44-1.00); Estimated GFR > 60 mL/min (>60); GLUCOSE 127 mg/dl (70-220); POTASSIUM 3.5 mmol/L (3.5-5.1); SODIUM 139 mmol/L (135-144)
[2019-03-06] MEDS: HYDROmorphONE 0.5 MG/0.5 ML SYG IV (05:02)
[2019-03-06] MEDS: ONDANSETRON 4 MG INJ IV ×2 (05:02→17:34)
[2019-03-06] MEDS: KETOROLAC 30 MG INJ IV (05:02)
[2019-03-06] MEDS: DEXAMETHASONE 10 MG/ML 1 ML INJ IV (05:05)
[2019-03-06] MEDS: FAMOTIDINE 20 MG INJ IV (05:05)
[2019-03-06] MEDS ORDERED: ONDANSETRON 4 MG INJ IV (05:30)
[2019-03-06] MEDS ORDERED: ACETAMINOPHEN 325 MG TAB PO (05:30)
[2019-03-06] MEDS: ENOXAPARIN 30 MG/0.3 ML SYG SC (10:28)
[2019-03-06] MEDS: DEXAMETHASONE 4 MG/ML 1 ML INJ IV ×4 (11:44→23:16)
[2019-03-06] MEDS: VERZENIO 150 MG PO (20:57)
[2019-03-06] MEDS: GABAPENTIN 100 MG CAP PO (21:04)
[2019-03-07] MEDS: DEXAMETHASONE 4 MG/ML 1 ML INJ IV ×4 (05:05→23:59)
[2019-03-07] MEDS: ONDANSETRON 4 MG INJ IV (05:05)
[2019-03-07] MEDS: SOD CHLORIDE 0.9% 1,000 ML IV ×2 (05:07→16:25)
[2019-03-07 05:47] LABS: ADD MAN DIFF? NO
[2019-03-07 05:57] LABS: WHITE BLOOD COUNT 2.5 10^3/ul (4.8-10.8)
[2019-03-07 05:57] LABS: ABNORMAL IP MESSAGE 1; HEMATOCRIT 35.6 % (37.0-47.0); HEMOGLOBIN 11.5 g/dl (12.0-16.0); LYMPHOCYTES # 0.6 10^3/ul (0.8-2.9); LYMPHOCYTES % 23.8 % (15.0-51.0); MEAN CORPUSCULAR HEMOGLOBIN 29.9 pg (29.0-33.0); MEAN CORPUSCULAR HGB CONC 32.3 g/dl (32.0-37.0); MEAN CORPUSCULAR VOLUME 92.5 fl (82.0-101.0); MEAN PLATELET VOLUME 9.5 fl (7.4-10.4); MONOCYTE # 0.2 10^3/ul (0.3-0.9); MONOCYTES % 6.9 % (0.0-11.0); NEUTROPHIL # 1.7 10^3/ul (1.6-7.5); NEUTROPHILS % 69.3 % (39.0-77.0); PLATELET COUNT 112 10^3/UL (140-415); RED BLOOD COUNT 3.85 10^6/ul (4.20-5.40); RED CELL DISTRIBUTION WIDTH 18.3 % (11.5-14.5)
[2019-03-07 06:04] LABS: POSITIVE DIFF @See below
[2019-03-07 06:19] LABS: ANION GAP 5 (5-13); BLOOD UREA NITROGEN 7 mg/dl (7-20); CALCIUM 7.6 mg/dl (8.4-10.2); CARBON DIOXIDE 23 mmol/L (21-31); CHLORIDE 109 mmol/L (97-110); CREATININE 0.34 mg/dl (0.44-1.00); Estimated GFR > 60 mL/min (>60); GLUCOSE 134 mg/dl (70-220); POTASSIUM 3.4 mmol/L (3.5-5.1); SODIUM 137 mmol/L (135-144)
[2019-03-07] MEDS: GABAPENTIN 100 MG CAP PO ×3 (08:53→21:12)
[2019-03-07] MEDS: ENOXAPARIN 30 MG/0.3 ML SYG SC (08:53)
[2019-03-07] MEDS: ABEMACICLIB 150 MG PO ×2 (08:54→21:13)
[2019-03-07] MEDS ORDERED: PATIENT'S OWN MED (CO-SIGNATURE) PO (09:00)
[2019-03-07] MEDS: morphine 2 MG INJ IV ×2 (13:13→21:08)
[2019-03-07] MEDS: FILGRASTIM-AAFI 300 MCG/0.5 ML SYRINGE SC (16:27)
[2019-03-08] MEDS: morphine 2 MG INJ IV ×6 (01:34→23:40)
[2019-03-08] MEDS: SOD CHLORIDE 0.9% 1,000 ML IV ×3 (01:36→22:21)
[2019-03-08 05:48] LABS: ABNORMAL IP MESSAGE 1; HEMATOCRIT 36.3 % (37.0-47.0); HEMOGLOBIN 11.9 g/dl (12.0-16.0); MEAN CORPUSCULAR HEMOGLOBIN 30.7 pg (29.0-33.0); MEAN CORPUSCULAR HGB CONC 32.8 g/dl (32.0-37.0); MEAN CORPUSCULAR VOLUME 93.8 fl (82.0-101.0); MEAN PLATELET VOLUME 9.2 fl (7.4-10.4); PLATELET COUNT 111 10^3/UL (140-415); RED BLOOD COUNT 3.87 10^6/ul (4.20-5.40); RED CELL DISTRIBUTION WIDTH 18.4 % (11.5-14.5)
[2019-03-08 05:48] LABS: WHITE BLOOD COUNT 7.3 10^3/ul (4.8-10.8)
[2019-03-08 06:01] LABS: POSITIVE DIFF @See below
[2019-03-08 06:02] LABS: ADD MAN DIFF? YES
[2019-03-08] MEDS: DEXAMETHASONE 4 MG/ML 1 ML INJ IV ×4 (06:03→23:29)
[2019-03-08 07:13] LABS: ANION GAP 6 (5-13); BLOOD UREA NITROGEN 8 mg/dl (7-20); CALCIUM 8.2 mg/dl (8.4-10.2); CARBON DIOXIDE 22 mmol/L (21-31); CHLORIDE 109 mmol/L (97-110); CREATININE 0.32 mg/dl (0.44-1.00); Estimated GFR > 60 mL/min (>60); GLUCOSE 119 mg/dl (70-220); POTASSIUM 3.9 mmol/L (3.5-5.1); SODIUM 137 mmol/L (135-144)
[2019-03-08 08:12] LABS: ANISOCYTOSIS 2+ (0-0); BAND NEUTROPHILS #M 1.6 10^3/ul (0.0-0.6); BAND NEUTROPHILS % (M) 23 % (0-4); LYMPHOCYTES #M 0.9 10^3/ul (0.8-2.9); LYMPHOCYTES % (M) 13 % (15-51); MICROCYTOSIS 2+ (0-0); MONOCYTE #M 0.5 10^3/ul (0.3-0.9); MONOCYTES % (M) 7 % (0-11); OVALOCYTES 1+ (0-0); PLATELET ESTIMATE DECREASED; POIKILOCYTOSIS 1+ (0-0); POLYCHROMASIA 1+ (0-0); REACTIVE LYMPHOCYTES% (M) 1 % (0-0); SEG NEUT #M 4.3 10^3/ul (1.6-7.5); SEGMENTED NEUTROPHILS (M) % 57 % (39-77); SMUDGE%M 7 % (0-0)
[2019-03-08] MEDS: GABAPENTIN 100 MG CAP PO ×3 (09:10→22:16)
[2019-03-08] MEDS: ONDANSETRON 4 MG INJ IV ×2 (09:10→23:27)
[2019-03-08] MEDS: ENOXAPARIN 30 MG/0.3 ML SYG SC (09:14)
[2019-03-08] MEDS: ABEMACICLIB 150 MG PO ×2 (10:10→22:17)
[2019-03-08] MEDS ORDERED: ACETAMINOPHEN 325 MG TAB PO (15:00)
[2019-03-08] MEDS: FILGRASTIM-AAFI 300 MCG/0.5 ML SYRINGE SC (18:01)
[2019-03-08] MEDS: HYDROCODONE/APAP (5/325) TAB PO (22:40)
[2019-03-09] MEDS: HYDROmorphONE 1 MG/ML SYG IV ×4 (04:26→21:49)
[2019-03-09] MEDS: DEXAMETHASONE 4 MG/ML 1 ML INJ IV ×3 (06:28→18:08)
[2019-03-09] MEDS: SOD CHLORIDE 0.9% 1,000 ML IV ×4 (07:00→21:49)
[2019-03-09] MEDS: GABAPENTIN 100 MG CAP PO ×3 (08:54→20:46)
[2019-03-09] MEDS: ENOXAPARIN 30 MG/0.3 ML SYG SC (08:55)
[2019-03-09] MEDS: ABEMACICLIB 150 MG PO ×2 (10:36→21:48)
[2019-03-09] MEDS: ONDANSETRON 4 MG INJ IV ×3 (12:21→20:44)
[2019-03-10] MEDS: DEXAMETHASONE 4 MG/ML 1 ML INJ IV ×5 (00:07→23:48)
[2019-03-10] MEDS: ONDANSETRON 4 MG INJ IV ×3 (02:05→11:04)
[2019-03-10] MEDS: HYDROmorphONE 1 MG/ML SYG IV ×3 (02:15→14:29)
[2019-03-10] MEDS: SOD CHLORIDE 0.9% 1,000 ML IV ×2 (06:30→17:47)
[2019-03-10] MEDS: ABEMACICLIB 150 MG PO ×2 (09:00→20:35)
[2019-03-10] MEDS: GABAPENTIN 100 MG CAP PO ×4 (09:00→20:35)
[2019-03-10] MEDS: ENOXAPARIN 30 MG/0.3 ML SYG SC (10:01)
[2019-03-10 19:26] LABS: WHITE BLOOD COUNT 10.1 10^3/ul (4.8-10.8)
[2019-03-10 19:26] LABS: ABNORMAL IP MESSAGE 1; HEMATOCRIT 36.8 % (37.0-47.0); HEMOGLOBIN 12.4 g/dl (12.0-16.0); MEAN CORPUSCULAR HEMOGLOBIN 30.6 pg (29.0-33.0); MEAN CORPUSCULAR HGB CONC 33.7 g/dl (32.0-37.0); MEAN CORPUSCULAR VOLUME 90.9 fl (82.0-101.0); MEAN PLATELET VOLUME 10.1 fl (7.4-10.4); PLATELET COUNT 112 10^3/UL (140-415); RED BLOOD COUNT 4.05 10^6/ul (4.20-5.40); RED CELL DISTRIBUTION WIDTH 18.9 % (11.5-14.5)
[2019-03-10 19:32] LABS: ADD MAN DIFF? YES; POSITIVE DIFF @See below
[2019-03-10 19:53] LABS: ANION GAP 7 (5-13); BAND NEUTROPHILS #M 0.6 10^3/ul (0.0-0.6); BAND NEUTROPHILS % (M) 6 % (0-4); BLOOD UREA NITROGEN 9 mg/dl (7-20); CALCIUM 7.2 mg/dl (8.4-10.2); CARBON DIOXIDE 23 mmol/L (21-31); CHLORIDE 99 mmol/L (97-110); CREATININE 0.25 mg/dl (0.44-1.00); ERYTHROBLAST% (NRBC) (M) 3 % (0-0); Estimated GFR > 60 mL/min (>60); GLUCOSE 144 mg/dl (70-220); LYMPHOCYTES #M 0.6 10^3/ul (0.8-2.9); LYMPHOCYTES % (M) 6 % (15-51); MONOCYTE #M 0.2 10^3/ul (0.3-0.9); MONOCYTES % (M) 2 % (0-11); PLATELET ESTIMATE NORMAL; POLYCHROMASIA 1+ (0-0); POTASSIUM 3.7 mmol/L (3.5-5.1); SEG NEUT #M 8.7 10^3/ul (1.6-7.5); SEGMENTED NEUTROPHILS (M) % 86 % (39-77); SMUDGE%M 22 % (0-0); SODIUM 129 mmol/L (135-144)
[2019-03-10] MEDS: METOCLOPRAMIDE 10 MG INJ IV ×2 (20:30→23:48)
[2019-03-10] MEDS ORDERED: LEVETIRACETAM IV 750 MG in DEXTROSE 5% 100 ML IVPB (21:00)
[2019-03-11] MEDS: HYDROmorphONE 1 MG/ML SYG IV (03:17)
[2019-03-11] MEDS ORDERED: NORepinephrine 8MG/250 ML (PMX 250 ML (03:52)
[2019-03-11] MEDS ORDERED: MAGNESIUM SULFATE 2 GM/50 ML 50 ML (03:53)
[2019-03-11] MEDS ORDERED: AMIODARONE 150MG/D5W BOLUS 100 ML (03:54)
[2019-03-11] MEDS: AMIODARONE 150MG/D5W BOLUS 100 ML IV (04:00)
[2019-03-11] MEDS ORDERED: AMIODARONE 900 MG in DEXTROSE 5% 482 ML IV (04:10)
[2019-03-11] MEDS ORDERED: PHENYLephrine 20MG IN 250 ML 250 ML IV (04:30)
[2019-03-11] MEDS: NORepinephrine 8MG/250 ML (PMX 250 ML IV ×2 (04:53→08:15)
[2019-03-11] MEDS: VASOPRESSIN 60 UNIT in DEXTROSE 5% 57 ML IV ×3 (04:54→20:03)
[2019-03-11] MEDS: MAGNESIUM SULFATE 2 GM/50 ML 50 ML IVPB (04:55)
[2019-03-11] MEDS: NA BICARBONATE 8.4% 50 ML SYG IV (04:56)
[2019-03-11] MEDS: CA CHLORIDE 10% 10 ML SYRINGE IV (04:57)
[2019-03-11] MEDS: SOD CHLORIDE 0.9% 500 ML IV (05:03)
[2019-03-11 05:20] LABS: Allen Test ACCEPTAB; Arterial Base Excess -9.5 mmol/L (-3.0-3); Arterial Blood Gas Oxygen Sat 98.5 mmHG (95.0-98.0); Arterial COHb 0.3 % (0.0-3.0); Arterial Fraction of Oxyhgb 98.1 % (93.0-99.0); Arterial HCO3 15.2 mmol/L (22.0-26.0); Arterial MetHb 0.1 % (0.0-1.5); Blood Gas Low PEEP Setting 0 cmH2O; MODE VENT - AC; Site Right Radial
[2019-03-11] MEDS: DOPamine-D5W 1.6 MG/ML 250 ML IV (05:52)
[2019-03-11] MEDS: PHENYLephrine 20MG IN 250 ML 250 ML IV ×2 (06:17→07:24)
[2019-03-11] MEDS: METOCLOPRAMIDE 10 MG INJ IV ×4 (06:44→23:52)
[2019-03-11] MEDS: DEXAMETHASONE 4 MG/ML 1 ML INJ IV ×4 (06:44→23:52)
[2019-03-11] MEDS ORDERED: EPINEPHrine 4 MG in DEXTROSE 5% 246 ML IV (07:00)
[2019-03-11] MEDS: ENOXAPARIN 30 MG/0.3 ML SYG SC (08:17)
[2019-03-11] MEDS: GABAPENTIN 100 MG CAP PO ×3 (08:30→21:51)
[2019-03-11] MEDS: ABEMACICLIB 150 MG PO ×2 (08:30→22:45)
[2019-03-11 08:34] LABS: ABNORMAL IP MESSAGE 1; HEMATOCRIT 41.4 % (37.0-47.0); HEMOGLOBIN 14.1 g/dl (12.0-16.0); MEAN CORPUSCULAR HEMOGLOBIN 30.8 pg (29.0-33.0); MEAN CORPUSCULAR HGB CONC 34.1 g/dl (32.0-37.0); MEAN CORPUSCULAR VOLUME 90.4 fl (82.0-101.0); MEAN PLATELET VOLUME 10.7 fl (7.4-10.4); NUCLEATED RED BLOOD CELLS% 5.4 /100WBC (0.0-0.0); PLATELET COUNT 52 10^3/UL (140-415); RED BLOOD COUNT 4.58 10^6/ul (4.20-5.40); RED CELL DISTRIBUTION WIDTH 18.6 % (11.5-14.5)
[2019-03-11 08:34] LABS: WHITE BLOOD COUNT 3.4 10^3/ul (4.8-10.8)
[2019-03-11] MEDS: PHENYLephrine 80 MG in DEXTROSE 5% 242 ML IV ×3 (08:34→22:45)
[2019-03-11 08:36] LABS: POSITIVE DIFF @See below
[2019-03-11 08:37] LABS: ADD MAN DIFF? YES
[2019-03-11 08:54] LABS: ALBUMIN 3.7 g/dl (3.3-4.9); ALBUMIN/GLOBULIN RATIO 1.54; ALKALINE PHOSPHATASE 85 IU/L (42-121); ANION GAP 12 (5-13); BILIRUBIN,INDIRECT 1.2 mg/dl (0-1.1); BILIRUBIN,TOTAL 1.2 mg/dl (0.2-1.3); BLOOD UREA NITROGEN 15 mg/dl (7-20); CALCIUM 8.9 mg/dl (8.4-10.2); CARBON DIOXIDE 21 mmol/L (21-31); CHLORIDE 99 mmol/L (97-110); CREATININE 0.55 mg/dl (0.44-1.00); Estimated GFR > 60 mL/min (>60); GLUCOSE 191 mg/dl (70-220); PHOSPHORUS 2.2 mg/dl (2.5-4.9); POTASSIUM 3.1 mmol/L (3.5-5.1); SODIUM 132 mmol/L (135-144); TOTAL PROTEIN 6.1 g/dl (6.1-8.1)
[2019-03-11 08:55] LABS: AMMONIA 27 umol/l (9-30)
[2019-03-11 09:08] LABS: ALANINE AMINOTRANSFERASE 1557 IU/L (13-69); ASPARTATE AMINO TRANSFERASE 1290 IU/L (15-46)
[2019-03-11 09:42] LABS: ANISOCYTOSIS 2+ (0-0); BAND NEUTROPHILS #M 0.8 10^3/ul (0.0-0.6); BAND NEUTROPHILS % (M) 25 % (0-4); BURR CELLS 1+ (0-0); EOSINOPHILS % (M) 1 % (0-7); ERYTHROBLAST% (NRBC) (M) 8 % (0-0); LYMPHOCYTES #M 0.6 10^3/ul (0.8-2.9); LYMPHOCYTES % (M) 19 % (15-51); METAMYELOCYTES %M 1 % (0-0); MICROCYTOSIS 1+ (0-0); MONOCYTE #M 0.1 10^3/ul (0.3-0.9); MONOCYTES % (M) 3 % (0-11); MYELOCYTES % (M) 2 % (0-0); PLATELET ESTIMATE SIG DECREASED; POIKILOCYTOSIS 1+ (0-0); POLYCHROMASIA 3+ (0-0); PROMYELOCYTES #M 0.1 10^3/ul (0-0); PROMYELOCYTES % (M) 3 % (0-0); REACTIVE LYMPHOCYTES #M 0.1 10^3/ul (0.0-0.0); REACTIVE LYMPHOCYTES% (M) 4 % (0-0); SEG NEUT #M 1.5 10^3/ul (1.6-7.5); SEGMENTED NEUTROPHILS (M) % 42 % (39-77); SMUDGE%M 3 % (0-0); TOXIC GRANULATION 2+ (0-0)
[2019-03-11] MEDS: SOD CHLORIDE 0.9% 1,000 ML IV ×3 (10:00→20:04)
[2019-03-11] MEDS: LACTATED RINGER'S 500 ML IV (10:33)
[2019-03-11] MEDS: POTASSIUM CHLORIDE 50 ML IVPB ×2 (11:02→12:21)
[2019-03-11 12:26] LABS: THYROID STIMULATING HORMONE 0.341 MIU/L (0.465-4.680)
[2019-03-11] MEDS ORDERED: VANCOMYCIN IV PER PHARMACY XX (13:30)
[2019-03-11] MEDS ORDERED: HYDROCORTISONE 100 MG INJ IV (14:00)
[2019-03-11] MEDS: PIPER-TAZO 3.375 GM IV (PMX) 100 ML IVPB ×3 (14:23→23:52)
[2019-03-11] MEDS: VANCOMYCIN 1.25 GM in SOD CHLORIDE 0.9% 250 ML IVPB (15:23)
[2019-03-11] MEDS ORDERED: VANCOMYCIN 1.25 GM/NS 250 ML 250 ML IVPB (15:30)
[2019-03-11 15:31] LABS: ADD UMIC YES; UR ASCORBIC ACID NEGATIVE (NEGATIVE); UR BACTERIA FEW /HPF (NONE SEEN); UR BILIRUBIN (Dip) NEGATIVE (NEGATIVE); UR BLOOD (Dip) 1+ mg/dL (NEGATIVE); UR CLARITY CLEAR (CLEAR); UR COLOR STRAW (YELLOW); UR GLUCOSE (Dip) 1+ mg/dL (NEGATIVE); UR KETONES (Dip) TRACE mg/dL (NEGATIVE); UR LEUKOCYTE ESTERASE (Dip) NEGATIVE Leu/ul (NEGATIVE); UR MUCUS FEW /HPF (NONE SEEN); UR NITRITE (Dip) NEGATIVE (NEGATIVE); UR RBC 2 /HPF (0-5); UR SPECIFIC GRAVITY (Dip) 1.005 (1.003-1.030); UR TOTAL PROTEIN (Dip) NEGATIVE (NEGATIVE); UR UROBILINOGEN (Dip) NEGATIVE (NEGATIVE); UR WBC 6 /HPF (0-5)
[2019-03-11 16:03] LABS: MAGNESIUM 2.2 mg/dl (1.7-2.5)
[2019-03-11 16:21] LABS: Allen Test ACCEPTAB; Arterial Blood Gas Oxygen Sat 98.8 mmHG (95.0-98.0); Arterial COHb 0 % (0.0-3.0); Arterial Fraction of Oxyhgb 98.7 % (93.0-99.0); Arterial HCO3 14.3 mmol/L (22.0-26.0); Arterial MetHb 0.1 % (0.0-1.5); Arterial pCO2 22.5 mmhg (35-45); Blood Gas High PEEP Setting 0 cmH2O; MODE VENT - AC; Site Right Radial
[2019-03-11 19:27] LABS: TROPONIN-I 0.431 ng/ml (0.000-0.120)
[2019-03-12 01:29] LABS: TROPONIN-I 0.365 ng/ml (0.000-0.120)
[2019-03-12] MEDS: DEXAMETHASONE 4 MG/ML 1 ML INJ IV ×3 (05:04→17:27)
[2019-03-12] MEDS: METOCLOPRAMIDE 10 MG INJ IV ×3 (05:04→17:27)
[2019-03-12] MEDS: VANCOMYCIN 1 GM 250 ML IVPB ×2 (05:04→14:40)
[2019-03-12] MEDS: PIPER-TAZO 3.375 GM IV (PMX) 100 ML IVPB ×3 (05:05→17:27)
[2019-03-12] MEDS: SOD CHLORIDE 0.9% 1,000 ML IV ×2 (05:05→15:49)
[2019-03-12 05:06] LABS: ABNORMAL IP MESSAGE 1; HEMOGLOBIN 12.2 g/dl (12.0-16.0); MEAN CORPUSCULAR HEMOGLOBIN 30.8 pg (29.0-33.0); MEAN CORPUSCULAR HGB CONC 33.9 g/dl (32.0-37.0); MEAN CORPUSCULAR VOLUME 90.9 fl (82.0-101.0); MEAN PLATELET VOLUME 12.7 fl (7.4-10.4); NUCLEATED RED BLOOD CELLS% 9.5 /100WBC (0.0-0.0); PLATELET COUNT 58 10^3/UL (140-415); RED BLOOD COUNT 3.96 10^6/ul (4.20-5.40); RED CELL DISTRIBUTION WIDTH 18.8 % (11.5-14.5)
[2019-03-12 05:06] LABS: WHITE BLOOD COUNT 4.6 10^3/ul (4.8-10.8)
[2019-03-12 05:07] LABS: ADD MAN DIFF? YES; POSITIVE DIFF @See below
[2019-03-12 05:22] LABS: LACTIC ACID 4.4 mmol/L (0.5-2.0)
[2019-03-12 05:46] LABS: ANION GAP 8 (5-13); BLOOD UREA NITROGEN 11 mg/dl (7-20); CALCIUM 6.3 mg/dl (8.4-10.2); CARBON DIOXIDE 23 mmol/L (21-31); CHLORIDE 95 mmol/L (97-110); CREATININE 0.49 mg/dl (0.44-1.00); Estimated GFR > 60 mL/min (>60); GLUCOSE 231 mg/dl (70-220); MAGNESIUM 1.9 mg/dl (1.7-2.5); PHOSPHORUS 1.2 mg/dl (2.5-4.9); POTASSIUM 3.5 mmol/L (3.5-5.1); SODIUM 126 mmol/L (135-144)
[2019-03-12 05:59] LABS: TROPONIN-I 0.322 ng/ml (0.000-0.120)
[2019-03-12 07:08] LABS: ANISOCYTOSIS 1+ (0-0); BAND NEUTROPHILS #M 0.8 10^3/ul (0.0-0.6); BAND NEUTROPHILS % (M) 19 % (0-4); BURR CELLS 1+ (0-0); ERYTHROBLAST% (NRBC) (M) 16 % (0-0); LYMPHOCYTES #M 0.4 10^3/ul (0.8-2.9); LYMPHOCYTES % (M) 10 % (15-51); MONOCYTES % (M) 2 % (0-11); OVALOCYTES 1+ (0-0); PLATELET ESTIMATE SIG DECREASED; POIKILOCYTOSIS 1+ (0-0); POLYCHROMASIA 3+ (0-0); SEG NEUT #M 3.2 10^3/ul (1.6-7.5); SEGMENTED NEUTROPHILS (M) % 69 % (39-77); SMUDGE%M 8 % (0-0); TOXIC GRANULATION 1+ (0-0)
[2019-03-12 07:46] LABS: AADO2 Arterial 156.3 mmHg (7.0-24.0); Allen Test ACCEPTAB; Arterial Base Excess -3.5 mmol/L (-3.0-3); Arterial Blood Gas Oxygen Sat 98.3 mmHG (95.0-98.0); Arterial COHb 0 % (0.0-3.0); Arterial Fraction of Oxyhgb 98.3 % (93.0-99.0); Arterial HCO3 18.1 mmol/L (22.0-26.0); Arterial MetHb 0 % (0.0-1.5); Arterial pCO2 24.1 mmhg (35-45); Blood Gas High PEEP Setting 0 cmH2O; MODE VENT - AC; Site Right Radial
[2019-03-12] MEDS: GABAPENTIN 100 MG CAP PO ×2 (08:06→13:09)
[2019-03-12] MEDS: PHENYLephrine 80 MG in DEXTROSE 5% 242 ML IV ×2 (08:11→17:03)
[2019-03-12] MEDS: ABEMACICLIB 150 MG PO ×2 (09:00→21:00)
[2019-03-12] MEDS: VASOPRESSIN 60 UNIT in DEXTROSE 5% 57 ML IV (15:49)
[2019-03-13] MEDS: PIPER-TAZO 3.375 GM IV (PMX) 100 ML IVPB ×3 (00:15→11:16)
[2019-03-13] MEDS: DEXAMETHASONE 4 MG/ML 1 ML INJ IV ×3 (00:17→11:15)
[2019-03-13] MEDS: GABAPENTIN 100 MG CAP PO ×3 (00:18→12:57)
[2019-03-13] MEDS: METOCLOPRAMIDE 10 MG INJ IV ×3 (00:18→11:15)
[2019-03-13] MEDS: PHENYLephrine 80 MG in DEXTROSE 5% 242 ML IV ×2 (02:14→11:41)
[2019-03-13 03:10] LABS: VANCOMYCIN,TROUGH 12.6 ug/ml (10.0-20.0)
[2019-03-13] MEDS: VANCOMYCIN 1 GM 250 ML IVPB ×2 (04:01→15:24)
[2019-03-13] MEDS: VASOPRESSIN 60 UNIT in DEXTROSE 5% 57 ML IV ×2 (04:30→15:40)
[2019-03-13 05:02] LABS: WHITE BLOOD COUNT 8.1 10^3/ul (4.8-10.8)
[2019-03-13 05:02] LABS: ABNORMAL IP MESSAGE 1; HEMATOCRIT 28.3 % (37.0-47.0); HEMOGLOBIN 9.5 g/dl (12.0-16.0); MEAN CORPUSCULAR HEMOGLOBIN 30.1 pg (29.0-33.0); MEAN CORPUSCULAR HGB CONC 33.6 g/dl (32.0-37.0); MEAN CORPUSCULAR VOLUME 89.6 fl (82.0-101.0); MEAN PLATELET VOLUME 10.9 fl (7.4-10.4); NUCLEATED RED BLOOD CELLS% 1.6 /100WBC (0.0-0.0); PLATELET COUNT 48 10^3/UL (140-415); RED BLOOD COUNT 3.16 10^6/ul (4.20-5.40); RED CELL DISTRIBUTION WIDTH 18.4 % (11.5-14.5)
[2019-03-13 05:03] LABS: ADD MAN DIFF? YES; POSITIVE DIFF @See below
[2019-03-13 05:38] LABS: ALANINE AMINOTRANSFERASE 330 IU/L (13-69); ALBUMIN 2.6 g/dl (3.3-4.9); ALBUMIN/GLOBULIN RATIO 1.08; ALKALINE PHOSPHATASE 147 IU/L (42-121); ANION GAP 12 (5-13); ASPARTATE AMINO TRANSFERASE 92 IU/L (15-46); BILIRUBIN,INDIRECT 1.1 mg/dl (0-1.1); BILIRUBIN,TOTAL 1.1 mg/dl (0.2-1.3); BLOOD UREA NITROGEN 15 mg/dl (7-20); CALCIUM 6.1 mg/dl (8.4-10.2); CARBON DIOXIDE 20 mmol/L (21-31); CHLORIDE 99 mmol/L (97-110); CREATININE 0.82 mg/dl (0.44-1.00); Estimated GFR > 60 mL/min (>60); GLUCOSE 294 mg/dl (70-220); SODIUM 131 mmol/L (135-144)
[2019-03-13 05:41] LABS: POTASSIUM 2.7 mmol/L (3.5-5.1)
[2019-03-13] MEDS: POTASSIUM CHLORIDE 100 ML IVPB ×2 (06:57→09:24)
[2019-03-13 07:42] LABS: ANISOCYTOSIS 2+ (0-0); BAND NEUTROPHILS #M 1.1 10^3/ul (0.0-0.6); BAND NEUTROPHILS % (M) 14 % (0-4); BURR CELLS 1+ (0-0); ERYTHROBLAST% (NRBC) (M) 3 % (0-0); LYMPHOCYTES #M 0.4 10^3/ul (0.8-2.9); LYMPHOCYTES % (M) 5 % (15-51); MICROCYTOSIS 1+ (0-0); MONOCYTE #M 0.1 10^3/ul (0.3-0.9); MONOCYTES % (M) 2 % (0-11); OVALOCYTES 1+ (0-0); PLATELET ESTIMATE SIG DECREASED; POIKILOCYTOSIS 1+ (0-0); POLYCHROMASIA 2+ (0-0); PROMYELOCYTES % (M) 1 % (0-0); SEG NEUT #M 6.4 10^3/ul (1.6-7.5); SEGMENTED NEUTROPHILS (M) % 78 % (39-77); SMUDGE%M 1 % (0-0); TOXIC GRANULATION 2+ (0-0)
[2019-03-13] MEDS: ABEMACICLIB 150 MG PO (08:25)
[2019-03-13] MEDS ORDERED: PHENYLephrine 80 MG in DEXTROSE 5% 242 ML IV (19:30)
[2019-03-13] MEDS: morphine (DRIP) 100 MG/100 ML 100 ML IV (19:54)
== END 2019-03-13 20:50 | disposition expired | DRG 54 ==
LOC: 6WM 03-10 22:41 → ICU 03-11 03:23 → E/R 02:43 → PP2 05:32
PROC: 0BH17EZ Insertion of Endotracheal Airway into Trachea, Via Natural or Artificial Opening (ICD-10-PCS; principal; 2019-03-11)
PROC: 5A1945Z Respiratory Ventilation, 24-96 Consecutive Hours (ICD-10-PCS; 2019-03-11)
PROC: 06HM33Z Insertion of Infusion Device into Right Femoral Vein, Percutaneous Approach (ICD-10-PCS; 2019-03-11)
DX: C79.32 Secondary malignant neoplasm of cerebral meninges (principal); G93.6 Cerebral edema; J96.00 Acute respiratory failure, unspecified whether with hypoxia or hypercapnia; G91.1 Obstructive hydrocephalus; C79.51 Secondary malignant neoplasm of bone; C77.0 Secondary and unspecified malignant neoplasm of lymph nodes of head, face and neck; E87.2 Acidosis; E87.1 Hypo-osmolality and hyponatremia; C78.6 Secondary malignant neoplasm of retroperitoneum and peritoneum; C50.919 Malignant neoplasm of unspecified site of unspecified female breast; E86.0 Dehydration; D70.9 Neutropenia, unspecified; R11.2 Nausea with vomiting, unspecified; I46.9 Cardiac arrest, cause unspecified; N28.9 Disorder of kidney and ureter, unspecified
CPT/HCPCS: 31500; 36415; 36600; 70450; 71045; 77290; 77334; 78606; 80048; 80053; 80202; 81001; 82140; 82607; 82803; 82962; 83605; 83735; 84100; 84443; 84484; 85025; 87081; 92950; 93005; 93306; 94002; 94003; 94770; 96361; 96374; 96375; 99285-25